=== PATIENT | female | born 1955 | race Caucasian/White ===

== ENCOUNTER → 2017-11-30 13:59 | Outpatient (CLI) | payer OTHER, SELFPAY ==
--- NOTE | 2017-11-30 | DI.US.S_ITS ---
PROCEDURE: US PELVIC COMPLETE INDICATIONS: PELVIC AND PERINEAL PAIN TECHNIQUE: Real-time scanning was performed of the pelvic organs, with image documentation. Additional endovaginal scanning was necessary due to incomplete visualization of the adnexal and endometrial structures by transabdominal scanning. COMPARISON: None. FINDINGS: Transabdominal scanning: Limited scanning through the kidneys shows no hydronephrosis. No pathologic free abdominal or pelvic fluid. Endovaginal scanning: Uterus: Surgically absent. Ovaries: Normal right ovary measuring 1.6 x 20 x 1.0 cm. Left ovary not visualized. No adnexal masses seen. IMPRESSION: 1. No source for pelvic pain identified sonographically. Dictated by: Paramjit CLIFFORD Interpreted: Luis Workman MD on 11/30/2017 at 15:04 Approved by: Luis Workman M.D. on 11/30/2017 at 15:16
== END ==
PROVIDERS: Visit Provider Physician Assistant
DX: R10.2 Pelvic and perineal pain (principal)
CPT/HCPCS: 76830; 76856

== ENCOUNTER 2017-12-17 19:29 | Emergency (ER) | payer OTHER, SELFPAY ==
[2017-12-17 19:41] VITALS: BP 117/56; PULSE 65; RESP 19; TEMP 36.9; O2SAT 100; BMI 26.4
--- NOTE | 2017-12-17 19:42 | DI.RAD.S_ITS ---
PROCEDURE: XR SHOULDER RT MIN 2V INDICATIONS: Fall TECHNIQUE: 3 views of the shoulder were acquired. COMPARISON: None. FINDINGS: Bones: Fracture fragments are noted overlying the lateral humeral head. No dislocation of the glenohumeral joint. Soft tissues: No suspicious soft tissue calcifications. IMPRESSION: Minimally displaced humeral head fracture. Dictated by: Pema Diallo M.D. on 12/17/2017 at 20:21 Approved by: Pema Diallo M.D. on 12/17/2017 at 20:22
[2017-12-17 19:55] VITALS: BP 117/56; PULSE 65; RESP 19; TEMP 36.9; O2SAT 100; BMI 26.4
--- NOTE | 2017-12-17 20:07 | ED.UPPEXIN ---
HPI - Extremity Injury (Upper) <Sushila Dietrich PA-C - Last Filed: 12/18/17 12:12> General Chief Complaint: Extremity Injury, Upper Stated Complaint: SHOULDER INJURY S/P FALL Time Seen by Provider: 12/17/17 19:55 Source: patient Mode of arrival: ambulatory Limitations: no limitations History of Present Illness HPI narrative: This 62-year-old female was out hiking with a heavy pack on prior to arrival when she tripped and fell onto her right shoulder. She thinks the shoulder was at her side and she fell kind of a sideways angle. She states she scraped her cheek on a tree branch but did not hit her head, denies any LOC or other injury. She states shoulder pain is excruciating and painful to move. She feels like she can move her elbow, wrist and hand okay, but creates more pain in her shoulder. She states that she cannot take any codeine or oxycodone or hydrocodone, has had reactions in the past. She thinks she took morphine previously when hospitalized and did okay with this. Related Data Previous Rx's Medication Instructions Recorded cyclobenzaprine 10 mg PO Q8H PRN #14 tab 12/17/17 morphine 15 mg PO Q6H PRN #6 tab 12/17/17 Allergies Allergy/AdvReac Type Severity Reaction Status Date / Time codeine AdvReac Verified 12/17/17 20:14 Exam <Sushila Dietrich PA-C - Last Filed: 12/18/17 12:12> Narrative Exam Narrative: GENERAL APPEARANCE: Patient intermittently wailing, uncomfortable, in NAD LUNGS: Clear to auscultation bilaterally. HEART: Rate and rhythm regular without murmur, normal S1 and S2, no S3 or S4. MS: R. shoulder in sling, held abducted and internally rotated. Tender over the superior and lateral shoulder and proximal UE. No TTP over distal humerus, elbow, forearm, wrist, or R. hand. She is able to move the R. hand wrist and fingers normally NEUROVASCULAR: Right hand fingers are warm and pink with brisk cap refill and sensation grossly intact, radial and ulnar pulses intact Initial Vital Signs Initial Vital Signs: Vital Signs Temperature 98.4 F 12/17/17 19:41 Pulse Rate 65 12/17/17 19:41 Respiratory Rate 19 12/17/17 19:41 Blood Pressure 117/56 L 12/17/17 19:41 Pulse Oximetry 100 12/17/17 19:41 <Benjamin Page DO - Last Filed: 12/18/17 19:16> Initial Vital Signs Initial Vital Signs: Vital Signs Temperature 98.4 F 12/17/17 19:41 Pulse Rate 65 12/17/17 19:41 Respiratory Rate 19 12/17/17 19:41 Blood Pressure 117/56 L 12/17/17 19:41 Pulse Oximetry 100 12/17/17 19:41 Course <Sushila Dietrich PA-C - Last Filed: 12/18/17 12:12> Additional Information: Patient had significant pain on arrival but declined any pain medication initially other than ibuprofen. She eventually consented to have some morphine which she tolerated in the past. This seemed to help her baseline pain but she continued to have muscle spasm which caused more severe pain. She did agree to trial of Flexeril eventually which helped considerably, and she was placed in a over the shoulder cup type immobilizer and then put back in the sling. She was more comfortable at the time of discharge and was given a flexeril prepack to take home. She was advised to call orthopedics for appointment in a.m. (she is an extablished patient) and is agreeable Orders Ordered: Discontinued Medications Cyclobenzaprine HCl (Flexeril 10 Mg Prepack) 1 bottle MISC SEEINSTR ONE Stop: 12/17/17 21:38 Last Admin: 12/17/17 21:45 Dose: 1 bottle Ibuprofen (Advil) 800 mg PO NOW ONE Stop: 12/17/17 20:12 Last Admin: 12/17/17 20:17 Dose: 800 mg Morphine Sulfate (Morphine) 10 mg IM NOW ONE Stop: 12/17/17 20:37 Last Admin: 12/17/17 20:49 Dose: 10 mg Ondansetron HCl (Zofran Odt) 4 mg PO NOW ONE Stop: 12/17/17 21:38 Last Admin: 12/17/17 21:45 Dose: 4 mg Vital Signs - 8 hr 12/17/17 19:41 12/17/17 19:55 12/17/17 21:41 Temperature 98.4 F 98.4 F Pulse Rate 65 65 64 Pulse Rate [Right Radial] 65 Respiratory Rate 19 19 22 Blood Pressure 117/56 L 117/56 L Blood Pressure [Left Arm] 114/66 Pulse Oximetry 100 100 97 <Benjamin Page DO - Last Filed: 12/18/17 19:16> Orders Ordered: Discontinued Medications Cyclobenzaprine HCl (Flexeril 10 Mg Prepack) 1 bottle MISC SEEINSTR ONE Stop: 12/17/17 21:38 Last Admin: 12/17/17 21:45 Dose: 1 bottle Ibuprofen (Advil) 800 mg PO NOW ONE Stop: 12/17/17 20:12 Last Admin: 12/17/17 20:17 Dose: 800 mg Morphine Sulfate (Morphine) 10 mg IM NOW ONE Stop: 12/17/17 20:37 Last Admin: 12/17/17 20:49 Dose: 10 mg Ondansetron HCl (Zofran Odt) 4 mg PO NOW ONE Stop: 12/17/17 21:38 Last Admin: 12/17/17 21:45 Dose: 4 mg Vital Signs - 8 hr 12/17/17 19:41 12/17/17 19:55 12/17/17 21:41 Temperature 98.4 F 98.4 F Pulse Rate 65 65 64 Pulse Rate [Right Radial] 65 Respiratory Rate 19 19 22 Blood Pressure 117/56 L 117/56 L Blood Pressure [Left Arm] 114/66 Pulse Oximetry 100 100 97 MDM - Extremity Injury (Upper) <Sushila Dietrich PA-C - Last Filed: 12/18/17 12:12> Imaging Data shoulder: Radiologist's impression: [address] [address] XRay Report Signed Patient: Vanita Garcia MR#: [id number] : 1955 Acct:[id number] Age/Sex: 62 / F Date of Service: 12/17/17 Loc: ED Accession Number: [id number] Procedure: XR shoulder RT min 2V Ordering Provider: Benjamin Page D.O. PROCEDURE: XR SHOULDER RT MIN 2V INDICATIONS: Fall TECHNIQUE: 3 views of the shoulder were acquired. COMPARISON: None. FINDINGS: Bones: Fracture fragments are noted overlying the lateral humeral head. No dislocation of the glenohumeral joint. Soft tissues: No suspicious soft tissue calcifications. IMPRESSION: Minimally displaced humeral head fracture. Dictated by: Pema Diallo M.D. on 12/17/2017 at 20:21 Approved by: Pema Diallo M.D. on 12/17/2017 at 20:22 Discharge Plan Departure Patient Disposition: Home, Self-Care Clinical Impression: Fracture of head of humerus Discharge Date/Time: 12/17/17 22:35 Interventions: ED Discharge Assessment Last Done: 12/17/17 22:35 Instructions: DI for Humeral Fracture Activity Restrictions/Additional Instructions: Most of the time these fractures heal with conservative care instead of surgery, but we do want you to follow up with Orthopedics since it is a little bit displaced. Please call [facility] 1st thing in the morning. Let them know that you are an established patient there, and that you were seen in the emergency room with a humeral head fracture and need to be seen for follow-up. Keep your arm in the special shoulder immobilizer that we put on as well as the sling for comfort. This will help keep the joint in place and help with pain. Continue ibuprofen 400-600 mg every 8 hr to help with pain and inflammation. You can take the cyclobenzaprine (muscle relaxant) every 8 hr as needed in addition, but remember it can make you sleepy. I have also given you a prescription for a few morphine to take over the next couple of days if you do need it. Please return or see your PCP right away if you have any acutely worsening symptoms while you are waiting to follow up with Orthopedics Prescriptions: New cyclobenzaprine 10 mg tablet 10 mg PO Q8H PRN (Reason: muscle spasm) Qty: 14 RF: 0 morphine 15 mg tablet 15 mg PO Q6H PRN (Reason: pain) Qty: 6 RF: 0 Referrals: [facility] [Provider Group] Poonam Lerner ARNP [Advanced Practioner Clinician] - <Benjamin Page DO - Last Filed: 12/18/17 19:16> Cosign ED Attending [place] Attestation: I was immediately available in the department for consultation. Documentation has been reviewed. I agree with assessment and plan.
--- NOTE | 2017-12-17 20:14 | ED_ITS ---
HPI - Extremity Injury (Upper) <Sushila Dietrich PA-C - Last Filed: 12/18/17 12:12> General Chief Complaint: Extremity Injury, Upper Stated Complaint: SHOULDER INJURY S/P FALL Time Seen by Provider: 12/17/17 19:55 Source: patient Mode of arrival: ambulatory Limitations: no limitations History of Present Illness HPI narrative: This 62-year-old female was out hiking with a heavy pack on prior to arrival when she tripped and fell onto her right shoulder. She thinks the shoulder was at her side and she fell kind of a sideways angle. She states she scraped her cheek on a tree branch but did not hit her head, denies any LOC or other injury. She states shoulder pain is excruciating and painful to move. She feels like she can move her elbow, wrist and hand okay, but creates more pain in her shoulder. She states that she cannot take any codeine or oxycodone or hydrocodone, has had reactions in the past. She thinks she took morphine previously when hospitalized and did okay with this. Related Data Previous Rx's Medication Instructions Recorded cyclobenzaprine 10 mg PO Q8H PRN #14 tab 12/17/17 morphine 15 mg PO Q6H PRN #6 tab 12/17/17 Allergies Allergy/AdvReac Type Severity Reaction Status Date / Time codeine AdvReac Verified 12/17/17 20:14 Exam <Sushila Dietrich PA-C - Last Filed: 12/18/17 12:12> Narrative Exam Narrative: GENERAL APPEARANCE: Patient intermittently wailing, uncomfortable, in NAD LUNGS: Clear to auscultation bilaterally. HEART: Rate and rhythm regular without murmur, normal S1 and S2, no S3 or S4. MS: R. shoulder in sling, held abducted and internally rotated. Tender over the superior and lateral shoulder and proximal UE. No TTP over distal humerus, elbow, forearm, wrist, or R. hand. She is able to move the R. hand wrist and fingers normally NEUROVASCULAR: Right hand fingers are warm and pink with brisk cap refill and sensation grossly intact, radial and ulnar pulses intact Initial Vital Signs Initial Vital Signs: Vital Signs Temperature 98.4 F 12/17/17 19:41 Pulse Rate 65 12/17/17 19:41 Respiratory Rate 19 12/17/17 19:41 Blood Pressure 117/56 L 12/17/17 19:41 Pulse Oximetry 100 12/17/17 19:41 <Benjamin Page DO - Last Filed: 12/18/17 19:16> Initial Vital Signs Initial Vital Signs: Vital Signs Temperature 98.4 F 12/17/17 19:41 Pulse Rate 65 12/17/17 19:41 Respiratory Rate 19 12/17/17 19:41 Blood Pressure 117/56 L 12/17/17 19:41 Pulse Oximetry 100 12/17/17 19:41 Course <Sushila Dietrich PA-C - Last Filed: 12/18/17 12:12> Additional Information: Patient had significant pain on arrival but declined any pain medication initially other than ibuprofen. She eventually consented to have some morphine which she tolerated in the past. This seemed to help her baseline pain but she continued to have muscle spasm which caused more severe pain. She did agree to trial of Flexeril eventually which helped considerably, and she was placed in a over the shoulder cup type immobilizer and then put back in the sling. She was more comfortable at the time of discharge and was given a flexeril prepack to take home. She was advised to call orthopedics for appointment in a.m. (she is an extablished patient) and is agreeable Orders Ordered: Discontinued Medications Cyclobenzaprine HCl (Flexeril 10 Mg Prepack) 1 bottle MISC SEEINSTR ONE Stop: 12/17/17 21:38 Last Admin: 12/17/17 21:45 Dose: 1 bottle Ibuprofen (Advil) 800 mg PO NOW ONE Stop: 12/17/17 20:12 Last Admin: 12/17/17 20:17 Dose: 800 mg Morphine Sulfate (Morphine) 10 mg IM NOW ONE Stop: 12/17/17 20:37 Last Admin: 12/17/17 20:49 Dose: 10 mg Ondansetron HCl (Zofran Odt) 4 mg PO NOW ONE Stop: 12/17/17 21:38 Last Admin: 12/17/17 21:45 Dose: 4 mg Vital Signs - 8 hr 12/17/17 19:41 12/17/17 19:55 12/17/17 21:41 Temperature 98.4 F 98.4 F Pulse Rate 65 65 64 Pulse Rate [Right Radial] 65 Respiratory Rate 19 19 22 Blood Pressure 117/56 L 117/56 L Blood Pressure [Left Arm] 114/66 Pulse Oximetry 100 100 97 <Benjamin Page DO - Last Filed: 12/18/17 19:16> Orders Ordered: Discontinued Medications Cyclobenzaprine HCl (Flexeril 10 Mg Prepack) 1 bottle MISC SEEINSTR ONE Stop: 12/17/17 21:38 Last Admin: 12/17/17 21:45 Dose: 1 bottle Ibuprofen (Advil) 800 mg PO NOW ONE Stop: 12/17/17 20:12 Last Admin: 12/17/17 20:17 Dose: 800 mg Morphine Sulfate (Morphine) 10 mg IM NOW ONE Stop: 12/17/17 20:37 Last Admin: 12/17/17 20:49 Dose: 10 mg Ondansetron HCl (Zofran Odt) 4 mg PO NOW ONE Stop: 12/17/17 21:38 Last Admin: 12/17/17 21:45 Dose: 4 mg Vital Signs - 8 hr 12/17/17 19:41 12/17/17 19:55 12/17/17 21:41 Temperature 98.4 F 98.4 F Pulse Rate 65 65 64 Pulse Rate [Right Radial] 65 Respiratory Rate 19 19 22 Blood Pressure 117/56 L 117/56 L Blood Pressure [Left Arm] 114/66 Pulse Oximetry 100 100 97 MDM - Extremity Injury (Upper) <Sushila Dietrich PA-C - Last Filed: 12/18/17 12:12> Imaging Data shoulder: Radiologist's impression: [address] [address] XRay Report Signed Patient: Vanita Garcia MR#: [id number] : 1955 Acct:[id number] Age/Sex: 62 / F Date of Service: 12/17/17 Loc: ED Accession Number: [id number] Procedure: XR shoulder RT min 2V Ordering Provider: Benjamin Page D.O. PROCEDURE: XR SHOULDER RT MIN 2V INDICATIONS: Fall TECHNIQUE: 3 views of the shoulder were acquired. COMPARISON: None. FINDINGS: Bones: Fracture fragments are noted overlying the lateral humeral head. No dislocation of the glenohumeral joint. Soft tissues: No suspicious soft tissue calcifications. IMPRESSION: Minimally displaced humeral head fracture. Dictated by: Pema Diallo M.D. on 12/17/2017 at 20:21 Approved by: Pema Diallo M.D. on 12/17/2017 at 20:22 Discharge Plan Departure Patient Disposition: Home, Self-Care Clinical Impression: Fracture of head of humerus Discharge Date/Time: 12/17/17 22:35 Interventions: ED Discharge Assessment Last Done: 12/17/17 22:35 Instructions: DI for Humeral Fracture Activity Restrictions/Additional Instructions: Most of the time these fractures heal with conservative care instead of surgery , but we do want you to follow up with Orthopedics since it is a little bit displaced. Please call [facility] 1st thing in the morning. Let them know that you are an established patient there, and that you were seen in the emergency room with a humeral head fracture and need to be seen for follow-up. Keep your arm in the special shoulder immobilizer that we put on as well as the sling for comfort. This will help keep the joint in place and help with pain. Continue ibuprofen 400-600 mg every 8 hr to help with pain and inflammation. You can take the cyclobenzaprine (muscle relaxant) every 8 hr as needed in addition, but remember it can make you sleepy. I have also given you a prescription for a few morphine to take over the next couple of days if you do need it. Please return or see your PCP right away if you have any acutely worsening symptoms while you are waiting to follow up with Orthopedics Prescriptions: New cyclobenzaprine 10 mg tablet 10 mg PO Q8H PRN (Reason: muscle spasm) Qty: 14 RF: 0 morphine 15 mg tablet 15 mg PO Q6H PRN (Reason: pain) Qty: 6 RF: 0 Referrals: [facility] [Provider Group] Poonam Lerner ARNP [Advanced Practioner Clinician] - <Benjamin Page DO - Last Filed: 12/18/17 19:16> Cosign ED Attending [place] Attestation: I was immediately available in the department for consultation. Documentation has been reviewed. I agree with assessment and plan.
[2017-12-17] MEDS: IBUPROFEN 400 MG TABLET 800 MG PO (20:17)
[2017-12-17] MEDS: MORPHINE 10 MG/ML INJ IM (20:49)
[2017-12-17 21:41] VITALS: BP 114/66; PULSE 64; RESP 22; O2SAT 97
[2017-12-17] MEDS: ONDANSETRON 4 MG ODT PO (21:45)
[2017-12-17] MEDS: CYCLOBENZAPRINE 10 MG PREPACK 1 BOTTLE MISC (21:45)
== END 2017-12-17 22:35 | disposition home or self-care (01) ==
PROVIDERS: Emergency Provider Internal Medicine
DX: S42.291A Other displaced fracture of upper end of right humerus, initial encounter for closed fracture (principal); W01.0XXA Fall on same level from slipping, tripping and stumbling without subsequent striking against object, initial encounter
CPT/HCPCS: 73030; 96372; 99282; 99283; J2270

== ENCOUNTER → 2017-12-28 12:39 | Outpatient (CLI) | payer OTHER, SELFPAY ==
--- NOTE | 2017-12-28 | DI.CT.S_ITS ---
PROCEDURE: CT UE RT WO CON INDICATIONS: CLOSED FRACTURE OF PROXIMAL END OF RIGHT HUMERUS TECHNIQUE: Noncontrast 1-1.5 mm thick sections acquired from the acromioclavicular joint to the inferior scapula, with coronal and sagittal reformatting. COMPARISON: [facility] [place], CR, XR SHOULDER 2+ VIEWS RIGHT, 12/22/2017, 10:25. FINDINGS: Image quality: Excellent. Bones: Comminuted fracture of the proximal right humerus involving surgical neck and greater tuberosity. There is also impacted appearance. Humeral head remains seated within the glenoid fossa. There is a focus of probable calcific tendinitis seen on image 47 series 6. Soft tissues: 5 mm pulmonary nodule seen on image 48 series 2 is indeterminate in the absence of comparison studies. IMPRESSION: Comminuted, impacted fracture of the proximal right humerus as above. Nonspecific 5 mm pulmonary nodule in the right lung. Recommend followup noncontrast chest CT in 6 months per Viviana society criteria to exclude early metastatic/malignant possibilities. Dictated by: Jose A Aleman M.D. on 12/28/2017 at 14:25 Approved by: Jose A Aleman M.D. on 12/28/2017 at 14:50
== END ==
PROVIDERS: Visit Provider Orthopaedic Surgery
DX: S42.251A Displaced fracture of greater tuberosity of right humerus, initial encounter for closed fracture (principal)
CPT/HCPCS: 73200

== ENCOUNTER → 2018-03-18 14:58 | Outpatient (CLI) | payer OTHER, SELFPAY ==
[2018-03-18 16:29] LABS: Estimated Glomerular Filt Rate > 60.0 mL/min (>60)
== END ==
PROVIDERS: Visit Provider Student in an Organized Health Care Education/Training Program
DX: E21.3 Hyperparathyroidism, unspecified (principal)
CPT/HCPCS: 36415; 82565

== ENCOUNTER → 2018-05-19 14:54 | Outpatient (CLI) | payer OTHER, SELFPAY ==
[2018-05-19 17:08] LABS: Calcium 9.3 mg/dL (8.4-10.2); Phosphorous 4.1 mg/dL (2.8-4.1)
[2018-05-19 17:21] LABS: Vitamin D 25 Hydroxy (D3) 60.3 ng/mL (30.0-100.0)
[2018-05-21 14:27] LABS: Parathyroid Hormone Int 46 pg/mL (14-64)
== END ==
PROVIDERS: PCP Physician Assistant; Visit Provider Internal Medicine Endocrinology, Diabetes & Metabolism
DX: E21.3 Hyperparathyroidism, unspecified (principal)
CPT/HCPCS: 36415; 82306; 82310; 83970; 84100

== ENCOUNTER → 2018-06-29 11:40 | Outpatient (CLI) | payer OTHER, SELFPAY ==
--- NOTE | 2018-06-29 | DI.CT.S_ITS ---
PROCEDURE: CT CHEST WO CON INDICATIONS: Solitary pulmonary nodule TECHNIQUE: Noncontrast 2.0-2.5 mm thick sections acquired from the pulmonary apices to the posterior costophrenic angles. 7 mm thick coronal and sagittal MIP reformats were then acquired. A low radiation dose technique was utilized. COMPARISON: [facility], CT, CT UE RT WO CON, 12/28/2017, 12:44. FINDINGS: Image quality: Diagnostic, given the low radiation dose technique. Lungs and pleura: A 5 mm diameter nodule is present within the lateral aspect of the right lower lobe (series 3, image 81). This is unchanged when compared with the prior CT dated 12/28/17. The lungs are otherwise clear. No other nodules or acute air space opacities. No pleural effusion. Mediastinum: Heart size is normal. No pericardial effusion. No mediastinal adenopathy by size criteria. Thoracic aorta and central pulmonary arteries are normal in size. Scattered atheromatous calcifications are present within the aortic arch. Esophagus is normal in caliber. No hiatal hernia. Bones and chest wall: No suspicious bony lesions. A chronic non-unified fracture is visualized within the proximal humerus. No vertebral body compression fractures. No axillary or supraclavicular adenopathy by size criteria. Thyroid gland is unremarkable. Abdomen: Visualized upper abdomen solid organs and bowel loops appear normal in the absence of contrast. IMPRESSION: 1. Stable right lower lobe 5 mm pulmonary nodule. Please see followup guidelines below. Consider followup in 6-12 months based on risk profile. Fleischner Society criteria for SOLID lung nodule followup. Nodule size (mm)Low-risk patientHigh-risk patient<6 (single or multiple)No routine followup.Optional CT at 12 months. 6-8 (single or multiple)CT at 6-12 months, then optional CT at 18-24 mo.CT at 6-12 months, then CT at 18-24 months. >8 (single)CT at 3 months, PET-CT, or biopsy. Same as for low-risk pts. >8 (multiple)CT at 3-6 months, then optional CT at 18-24 mo.CT at 3-6 months, then CT at 18-24 months. Fleischner Society criteria for SUB-SOLID lung nodule followup. Solitary pure ground-glass nodules<6 mm (ground glass or part solid)No followup needed. 6 mm or larger (ground glass)CT at 6-12 months to confirm persistence, then CT every 2 years until 5 years.6 mm or larger (part solid)CT at 3-6 months to confirm persistence, then annual CT until 5 years if unchanged and solid component remains <6 mm. Multiple sub-solid nodules<6 mmCT at 3-6 months, then CT consider at 2 & 4 years for high risk patients. [address] at 3-6 months. Subsequent management based on most suspicious lesions. Recommendations do not apply to lung cancer screening, patients with immunosuppression, or patients with known primary cancer. Dictated by: Evelina Dahl M.D. on 06/29/2018 at 15:39 Approved by: Evelina Dahl M.D. on 06/29/2018 at 15:42
== END ==
PROVIDERS: PCP Physician Assistant; Visit Provider Physician Assistant
DX: R91.1 Solitary pulmonary nodule (principal)
CPT/HCPCS: 71250

== ENCOUNTER → 2019-01-07 07:08 | Outpatient (CLI) | payer OTHER, SELFPAY ==
[2019-01-07 12:10] LABS: Add Manual Diff / Slide Review NO; Basophils Absolute Auto 0 /uL (0-100); Basophils Percent Auto 0.4 % (0-2); Eosinophils Absolute Auto 100 /uL (0-450); Hematocrit 42.1 % (36-46); Hemoglobin 14.5 g/dL (12.0-16.0); Lymphocytes Absolute Auto 1900 /uL (1100-4500); Lymphocytes Percent Auto 36.1 % (25-40); Mean Corpuscular HGB Conc 34.5 % (30-36); Mean Corpuscular Hemoglobin 32.5 PG (26-34); Mean Corpuscular Volume 94.4 fL (80-100); Monocytes Absolute Auto 300 /uL (0-900); Monocytes Percent Auto 6.6 % (3-14); Neutrophils Absolute Auto 2800 /uL (1500-7000); Neutrophils Percent Auto 54.9 % (50-75); Platelet Count 266 X10^3/uL (150-400); Red Blood Cell Count 4.46 X10^6/uL (4.0-5.2); Red Cell Distribution Width 12.4 % (11.6-14.8); White Blood Cell Count 5.2 X10^3/uL (4.5-11.0)
[2019-01-07 12:32] LABS: Alanine Aminotransferase 27 IU/L (9-52); Albumin 4.4 g/dL (3.5-5.0); Albumin Globulin Ratio 1.8 (1.0-2.8); Alkaline Phosphatase 57 U/L (38-126); Aspartate Aminotransferase 30 IU/L (14-36); Bilirubin Total 0.5 mg/dL (0.2-1.3); Blood Urea Nitrogen 15 mg/dL (7-17); Calcium 9.8 mg/dL (8.4-10.2); Carbon Dioxide 28 mmol/L (22-32); Chloride 102 mmol/L (98-107); Cholesterol 210 mg/dL (140-199); Estimated Glomerular Filt Rate > 60.0 mL/min (>60); Globulin 2.5 g/dL (1.7-4.1); Glucose 89 mg/dL (80-110); HDL Cholesterol 55 mg/dL (40-60); HEMOLYSIS < 15 (0-50); LDL Cholesterol Calculated 130 mg/dL (<100); Magnesium 2.3 mg/dL (1.6-2.3); Potassium 3.9 mmol/L (3.4-5.1); Sodium 137 mmol/L (137-145); Total Protein 6.9 g/dL (6.3-8.2); Triglycerides 126 mg/dL (35-150)
[2019-01-07 12:42] LABS: Vitamin D 25 Hydroxy (D3) 39.9 ng/mL (30.0-100.0)
[2019-01-07 13:02] LABS: Thyroid Stimulating Hormone 3.98 uIU/mL (0.47-4.68)
[2019-01-07 13:24] LABS: Bacteria Urine None Seen
[2019-01-07 15:17] LABS: Appearance Urine UA CLEAR; Bilirubin Urine UA NEGATIVE (NEGATIVE); Color Urine UA YELLOW; Glucose Urine UA NEGATIVE (Negative); Ketones Urine UA TRACE (NEGATIVE); Leukocyte Esterase Urine UA NEGATIVE (NEGATIVE); Nitrite Urine UA NEGATIVE (Negative); Occult Blood Urine UA 1+ (Negative); Protein Urine UA NEGATIVE (Negative); Specific Gravity Urine UA 1.025 (1.000-1.035); Urobilinogen Urine UA 0.2 E.U./dL (0.2); pH Urine UA 5.5 (4.5-8.0)
[2019-01-07 15:52] LABS: Culture Indicated Urine Cult Not Indicated; Mucus Urine 1+ (Negative); RBC Urine 1-5/HPF (0-5/HPF); Squamous Epithelial Cell Urine None Seen (0-5/HPF); WBC Urine 0-1/HPF (0-5/HPF)
[2019-01-11 15:50] LABS: Parathyroid Hormone Int 34 pg/mL (14-64)
== END ==
PROVIDERS: Physician Assistant; PCP Internal Medicine; Visit Provider Internal Medicine
DX: R53.83 Other fatigue (principal); E21.3 Hyperparathyroidism, unspecified; E55.9 Vitamin D deficiency, unspecified; M81.0 Age-related osteoporosis without current pathological fracture; Z13.220 Encounter for screening for lipoid disorders
CPT/HCPCS: 36415; 80053; 80061; 81001; 82306; 82330; 83735; 83970; 84443; 85025

== ENCOUNTER → 2019-04-21 12:52 | Outpatient (CLI) | payer OTHER, SELFPAY | PROVIDERS: PCP Internal Medicine; Visit Provider Internal Medicine | DX: M85.852 Other specified disorders of bone density and structure, left thigh (principal); Z78.0 Asymptomatic menopausal state | CPT/HCPCS: 77080 ==

== ENCOUNTER → 2019-04-29 09:44 | Outpatient (CLI) | payer OTHER, SELFPAY ==
[2019-04-29 10:41] LABS: Add Manual Diff / Slide Review NO; Basophils Absolute Auto 0 /uL (0-100); Basophils Percent Auto 0.2 % (0-2); Eosinophils Absolute Auto 100 /uL (0-450); Hematocrit 42.3 % (36-46); Hemoglobin 14.6 g/dL (12.0-16.0); Lymphocytes Absolute Auto 1500 /uL (1100-4500); Lymphocytes Percent Auto 29.5 % (25-40); Mean Corpuscular HGB Conc 34.5 % (30-36); Mean Corpuscular Volume 95.6 fL (80-100); Monocytes Absolute Auto 500 /uL (0-900); Monocytes Percent Auto 8.8 % (3-14); Neutrophils Absolute Auto 3100 /uL (1500-7000); Neutrophils Percent Auto 60.5 % (50-75); Platelet Count 270 X10^3/uL (150-400); Red Blood Cell Count 4.43 X10^6/uL (4.0-5.2); Red Cell Distribution Width 12.1 % (11.6-14.8); White Blood Cell Count 5.1 X10^3/uL (4.5-11.0)
[2019-04-29 11:08] LABS: Alanine Aminotransferase 24 IU/L (<35); Albumin 4.6 g/dL (3.5-5.0); Albumin Globulin Ratio 2.2 (1.0-2.8); Alkaline Phosphatase 65 U/L (38-126); Aspartate Aminotransferase 28 IU/L (14-36); BUN Creatinine Ratio 41.7 (6-22); Bilirubin Total 0.4 mg/dL (0.2-1.3); Blood Urea Nitrogen 25 mg/dL (7-17); Calcium 9.6 mg/dL (8.4-10.2); Carbon Dioxide 25 mmol/L (22-32); Chloride 103 mmol/L (98-107); Estimated Glomerular Filt Rate > 60.0 mL/min (>60); Globulin 2.1 g/dL (1.7-4.1); Glucose 89 mg/dL (80-110); HEMOLYSIS < 15 (0-50); Potassium 4.4 mmol/L (3.4-5.1); Sodium 137 mmol/L (137-145); Total Protein 6.7 g/dL (6.3-8.2)
[2019-04-29 11:38] LABS: TSH w/ Reflex to FT4 1.53 uIU/mL (0.47-4.68)
[2019-04-29 11:57] LABS: Vitamin B12 414 pg/mL (239-931)
[2019-05-03 16:42] LABS: Parathyroid Hormone Int 22 pg/mL (14-64)
== END ==
PROVIDERS: PCP Internal Medicine; Visit Provider Internal Medicine
DX: R41.89 Other symptoms and signs involving cognitive functions and awareness (principal); M54.16 Radiculopathy, lumbar region; E21.3 Hyperparathyroidism, unspecified
CPT/HCPCS: 36415; 80053; 82607; 83970; 84443; 85025

== ENCOUNTER → 2019-05-24 14:13 | Outpatient (CLI) | payer OTHER, SELFPAY ==
--- NOTE | 2019-05-24 | DI.MRI.S_ITS ---
PROCEDURE: MR LUMBAR SPINE WO CON INDICATIONS: radiculopathy, lumbar region TECHNIQUE: Noncontrast sagittal T1 spin echo and T2 fast echo, sagittal STIR, axial T1 and T2 fast spin echo through the lumbar spine. In cases with scoliosis, additional coronal T2 fast spin echo may be performed. COMPARISON: None. FINDINGS: Image quality: Excellent. Alignment and Curvature: There is mild L4-L5 anterolisthesis secondary to facet hypertrophy. Bone Marrow: Marrow is of normal overall signal. No acute vertebral body compression fractures. Spinal Cord: Conus medullaris terminates at the L1-2 disc level. Visualized cord demonstrates normal signal and size. Paraspinous Soft Tissues: No paravertebral masses. L1-L2: Normal appearance. L2-L3: Normal appearance. L3-L4: Disc is in normal appearance. Mild bilateral facet hypertrophy. No central stenosis. No neural foraminal narrowing. No neural compression. L4-L5: Loss of disc signal. Mild, diffuse disc bulge. Moderate bilateral facet hypertrophy. Mild narrowing of the central canal. Mild bilateral neural foraminal narrowing. No neural compression. L5-S1: Loss of disc signal. Minimal, diffuse disc bulge. Moderate right and mild left facet hypertrophy. No central stenosis. Mild right neural foraminal narrowing. No neural compression. Fissure noted in the posterior left central annulus. Sacrum is normal in appearance. No sacral fracture. Sacroiliac joints are normal in appearance. Lumbosacral plexus is normal in appearance where visualized. IMPRESSION: 1. Grade 1 L4-L5 degenerative spondylolisthesis. 2. Multilevel degenerative disease. 3. Multilevel facet arthropathy. 4. Mild L4-L5 central canal narrowing. 5. Mild bilateral L4-L5 neural foraminal narrowing. Mild right L5-S1 neural foraminal narrowing. 6. No neural compression. Dictated by: Linda Salas MD, PhD on 05/24/2019 at 18:17 Approved by: Linda Salas MD, PhD on 05/24/2019 at 18:21
== END ==
PROVIDERS: PCP Internal Medicine; Visit Provider Internal Medicine
DX: M43.16 Spondylolisthesis, lumbar region (principal); M51.16 Intervertebral disc disorders with radiculopathy, lumbar region; M47.26 Other spondylosis with radiculopathy, lumbar region; M47.27 Other spondylosis with radiculopathy, lumbosacral region; M48.061 Spinal stenosis, lumbar region without neurogenic claudication; M48.07 Spinal stenosis, lumbosacral region
CPT/HCPCS: 72148

== ENCOUNTER → 2020-01-14 13:56 | Outpatient (CLI) | payer OTHER, SELFPAY ==
[2020-01-17 07:24] LABS: COVID19 Sendout Not Detected (Not Detect)
== END ==
PROVIDERS: PCP Internal Medicine; Visit Provider Physician Assistant
DX: Z01.812 Encounter for preprocedural laboratory examination (principal)
CPT/HCPCS: 87635

== ENCOUNTER 2020-01-17 06:28 | Day surgery (SDC) | payer OTHER, SELFPAY ==
[2020-01-17] MEDS: PROPARACAINE 0.5% OPHTH SOL 2 DROPS EYE-OP (07:09)
[2020-01-17] MEDS: CATARACT EYE COMPOUND (10 DROPS/SYRINGE) 3 DROPS EYE-OP (07:10)
[2020-01-17 07:13] VITALS: BP 160/90; PULSE 82; RESP 16; TEMP 36.9; O2SAT 100; BMI 26.0
--- NOTE | 2020-01-17 07:34 | PM.PREOP ---
Pre-operative Note Interval Note History & Physical reviewed/Exam performed by Physician: Yes Changes to H&P: No
--- NOTE | 2020-01-17 07:34 | PM.OP.1 ---
Operative Date/Time/Diagnoses Pre-op diagnosis: Nuclear cataract right eye Procedure & Clinicians Procedure: Cataract Surgery Same procedure as scheduled: Yes Surgeon: Gurwinder Eden Anesthesia Type: MAC +/- and Sedation Operative Notes Procedure in detail: Patient brought to the operating suite. Tetracaine drops placed in the right eye. Patient was prepped and draped in sterile manner. Wire lid speculum was placed in the eye. Betadine drops were placed on the eye. This was irrigated. Lidocaine jelly was placed on the eye. A paracentesis port was created with a side-port blade. 0.1 mL 1% preservative free lidocaine was injected into the anterior chamber. The anterior chamber was deepened with viscoelastic. 2.6 mm keratome was used to create a temporal clear corneal incision. Cystotome and Utrata forceps were used to create continuous tear capsulorrhexis. Balanced salt solution was used to hydro dissect the nucleus. The phacoemulsification handpiece was inserted and the nucleus was removed using the stop and chop technique. The irrigation aspiration handpiece was inserted and the remaining cortex was removed. Anterior chamber was deepened with viscoelastic. An Higgins ZCB00 intraocular lens with a power of 21.5 was injected into the capsular bag. Irrigation aspiration handpiece was inserted and the remaining viscoelastic was removed. Incision was hydrated with balanced salt solution and found to be leak free with pressure with Weck-Lizzie sponges. 0.1 mL Vigamox injected anterior chamber. 0.3 mL Kenalog 10 mg was injected subconjunctivally. Lid speculum was removed. The patient left the operating room in excellent condition. Complications: none Post-operative Condition: stable Disposition: same day surgery
[2020-01-17] MEDS: PHENYLEPHRINE/LIDOCAINE VIAL (OR) 0.2 ML EYE-OP (07:55)
[2020-01-17] MEDS: TRIAMCINOLONE 50 MG/5 ML VIAL INJ (07:55)
[2020-01-17] MEDS: MOXIFLOXACIN INJ 5 MG/ML VIAL EYE-OP (07:55)
[2020-01-17] MEDS: TETRACAINE 0.5% OPHTH DROPS 4 ML 2 DROPS EYE-OP (07:56)
[2020-01-17] MEDS: CHONDROIDTIN/SOD HYALURONATE 1.05 ML SYRINGE INTRAOCULA (07:56)
[2020-01-17] MEDS: LIDOCAINE JELLY 2% 5 ML 1 APPLIC TOP (07:56)
[2020-01-17] MEDS: BALANCED SALT IRRIG SOLN NO.2 500 ML, EPINEPHrine 1 MG IRR (07:57)
[2020-01-17 08:28] VITALS: BP 150/85; PULSE 77; RESP 20; TEMP 35.9; O2SAT 99
== END 2020-01-17 08:32 | disposition home or self-care (01) ==
PROVIDERS: PCP Internal Medicine; Referring Provider Ophthalmology; Visit Provider Ophthalmology
PROC: (CPT 66984; principal; 2020-01-17 07:45)
DX: H25.11 Age-related nuclear cataract, right eye (principal)
CPT/HCPCS: 66984; J0171; J2250; J3010; J3301

== ENCOUNTER → 2020-01-28 08:14 | Outpatient (CLI) | payer OTHER, SELFPAY ==
[2020-01-29 07:10] LABS: COVID19 Sendout Not Detected (Not Detect)
== END ==
PROVIDERS: PCP Internal Medicine; Visit Provider Physician Assistant
DX: Z11.59 Encounter for screening for other viral diseases (principal)
CPT/HCPCS: 87635

== ENCOUNTER 2020-01-31 11:30 | Day surgery (SDC) | payer OTHER, SELFPAY ==
[2020-01-31 11:59] VITALS: BP 139/82; PULSE 75; RESP 16; TEMP 36.8; O2SAT 100; BMI 26.0
[2020-01-31] MEDS: CATARACT EYE COMPOUND (10 DROPS/SYRINGE) 3 DROPS EYE-OP (12:08)
[2020-01-31] MEDS: PROPARACAINE 0.5% OPHTH SOL 2 DROPS EYE-OP (12:12)
--- NOTE | 2020-01-31 12:24 | P.OP_ITS ---
Operative Date/Time/Diagnoses Pre-op diagnosis: Nuclear Cataract Left eye Post-op diagnosis: same Procedure & Clinicians Same procedure as scheduled: Yes Surgeon: Gurwinder Eden Anesthesia Type: MAC +/- and Sedation Operative Notes Procedure in detail: Patient brought to the operating suite. Tetracaine drops placed in the left eye. Patient was prepped and draped in sterile manner. Wire lid speculum was placed in the eye. Betadine drops were placed on the eye. This was irrigated. Lidocaine jelly was placed on the eye. A paracentesis port was created with a side-port blade. 0.1 mL 1% preservative free lidocaine was injected into the anterior chamber. The anterior chamber was deepened with viscoelastic. 2.6 mm keratome was used to create a temporal clear corneal incision. Cystotome and Utrata forceps were used to create continuous tear capsulorrhexis. Balanced salt solution was used to hydro dissect the nucleus. The phacoemulsification handpiece was inserted and the nucleus was removed using the stop and chop technique. The irrigation aspiration handpiece was inserted and the remaining cortex was removed. Anterior chamber was deepened with viscoe lastic. An Higgins ZCB00 intraocular lens with a power of 21.5 was injected into the capsular bag. Irrigation aspiration handpiece was inserted and the remaining viscoelastic was removed. Incision was hydrated with balanced salt solution and found to be leak free with pressure with Weck-Lizzie sponges. 0.1 mL Vigamox injected anterior chamber. 0.3 mL Kenalog 10 mg was injected subconjunctivally. Lid speculum was removed. The patient left the operating room in excellent condition. Complications: none Post-operative Condition: stable Disposition: same day surgery
--- NOTE | 2020-01-31 12:24 | PM.PREOP ---
Pre-operative Note Interval Note History & Physical reviewed/Exam performed by Physician: Yes Changes to H&P: No
[2020-01-31] MEDS: TRIAMCINOLONE 50 MG/5 ML VIAL INJ (12:44)
[2020-01-31] MEDS: CHONDROIDTIN/SOD HYALURONATE 1.05 ML SYRINGE INTRAOCULA (12:44)
[2020-01-31] MEDS: MOXIFLOXACIN INJ 5 MG/ML VIAL EYE-OP (12:44)
[2020-01-31] MEDS: PHENYLEPHRINE/LIDOCAINE VIAL (OR) 0.2 ML EYE-OP (12:44)
[2020-01-31] MEDS: TETRACAINE 0.5% OPHTH DROPS 4 ML 2 DROPS EYE-OP (12:45)
[2020-01-31] MEDS: LIDOCAINE JELLY 2% 5 ML 1 APPLIC TOP (12:45)
[2020-01-31] MEDS: BALANCED SALT IRRIG SOLN NO.2 500 ML, EPINEPHrine 1 MG IRR (12:45)
[2020-01-31 12:56] VITALS: BP 135/78; PULSE 64; RESP 16; TEMP 36.6; O2SAT 100
== END 2020-01-31 13:10 | disposition home or self-care (01) ==
PROVIDERS: PCP Internal Medicine; Referring Provider Ophthalmology; Visit Provider Ophthalmology
PROC: (CPT 66984; principal; 2020-01-31 13:15)
DX: H25.12 Age-related nuclear cataract, left eye (principal)
CPT/HCPCS: 66984; J0171; J2250; J3010; J3301

== ENCOUNTER → 2020-08-27 08:52 | Outpatient (CLI) | payer MEDICARE, OTHER, SELFPAY ==
[2020-08-27 09:57] LABS: Add Manual Diff / Slide Review NO; Basophils Absolute Auto 0 /uL (0-100); Basophils Percent Auto 0.3 % (0-2); Eosinophils Absolute Auto 100 /uL (0-450); Hemoglobin 14.2 g/dL (12.0-16.0); Lymphocytes Absolute Auto 1300 /uL (1100-4500); Lymphocytes Percent Auto 33.9 % (25-40); Mean Corpuscular HGB Conc 34.6 % (30-36); Mean Corpuscular Hemoglobin 32.8 PG (26-34); Mean Corpuscular Volume 94.7 fL (80-100); Monocytes Absolute Auto 300 /uL (0-900); Monocytes Percent Auto 6.8 % (3-14); Neutrophils Absolute Auto 2200 /uL (1500-7000); Platelet Count 260 X10^3/uL (150-400); Red Blood Cell Count 4.33 X10^6/uL (4.0-5.2); Red Cell Distribution Width 11.9 % (11.6-14.8); White Blood Cell Count 3.9 X10^3/uL (4.5-11.0)
[2020-08-27 10:02] LABS: Alanine Aminotransferase 29 IU/L (<35); Albumin 4.3 g/dL (3.5-5.0); Albumin Globulin Ratio 1.7 (1.0-2.8); Alkaline Phosphatase 55 U/L (38-126); Aspartate Aminotransferase 27 IU/L (14-36); Bilirubin Total 0.4 mg/dL (0.2-1.3); Blood Urea Nitrogen 15 mg/dL (7-17); Calcium 9.3 mg/dL (8.4-10.2); Carbon Dioxide 30 mmol/L (22-32); Chloride 105 mmol/L (98-107); Cholesterol 233 mg/dL (140-199); Estimated Glomerular Filt Rate > 60.0 mL/min (>60); Globulin 2.5 g/dL (1.7-4.1); Glucose 99 mg/dL (80-110); HDL Cholesterol 58 mg/dL (40-60); HEMOLYSIS < 15 (0-50); LDL Cholesterol Calculated 150 mg/dL (<100); Sodium 137 mmol/L (137-145); Total Protein 6.8 g/dL (6.3-8.2); Triglycerides 126 mg/dL (35-150)
[2020-08-27 10:05] LABS: C-Reactive Protein Quant < 0.5 mg/dL (<1.0)
[2020-08-27 10:36] LABS: TSH w/ Reflex to FT4 2.52 uIU/mL (0.47-4.68)
== END ==
PROVIDERS: PCP Family Medicine; Referring Provider Family Medicine; Visit Provider Family Medicine
DX: M81.0 Age-related osteoporosis without current pathological fracture (principal); R53.83 Other fatigue; E78.5 Hyperlipidemia, unspecified
CPT/HCPCS: 36415; 80053; 80061; 82306; 84443; 85025; 86140

== ENCOUNTER → 2020-09-19 09:29 | Outpatient (CLI) | payer MEDICARE, OTHER, SELFPAY ==
[2020-09-19 12:03] LABS: Bacteria Urine None Seen; RBC Urine None Seen (0-5/HPF); WBC Urine None Seen (0-5/HPF)
[2020-09-19 12:10] LABS: Culture Indicated Urine Cult Not Indicated; Urine Comments Microscopic Normal
== END ==
PROVIDERS: PCP Family Medicine; Visit Provider Family Medicine
DX: R10.9 Unspecified abdominal pain (principal)
CPT/HCPCS: 81015

== ENCOUNTER → 2020-09-21 07:12 | Outpatient (CLI) | payer MEDICARE, OTHER, SELFPAY ==
--- NOTE | 2020-09-21 07:15 | DI.US.S_ITS ---
PROCEDURE: US PELVIC COMPLETE INDICATIONS: RIGHT PELVIC PAIN TECHNIQUE: Real-time scanning was performed of the pelvic organs, with image documentation. Additional endovaginal scanning was necessary due to incomplete visualization of the adnexal and endometrial structures by transabdominal scanning. COMPARISON: [facility], , PELVIC COMPLETE, 11/30/2017, 14:45. FINDINGS: Uterus: The patient is status post hysterectomy. Ovaries: The ovaries are not visualized. Other: No adnexal mass or fluid. IMPRESSION: 1. Status post hysterectomy and possibly oophorectomy. 2. No adnexal mass or adnexal fluid. 3. No acute abnormality is identified. Dictated by: Jeff Noel M.D. on 09/21/2020 at 8:14 Approved by: Jeff Noel M.D. on 09/21/2020 at 8:20
== END ==
PROVIDERS: PCP Family Medicine; Referring Provider Family Medicine; Visit Provider Family Medicine
DX: R10.2 Pelvic and perineal pain (principal)
CPT/HCPCS: 76830; 76856